=== PATIENT | male | born 1975 | race Caucasian/White ===

== ENCOUNTER 2020-05-07 16:16 | Outpatient (CLI) | payer OTHER, SELFPAY | END 2020-05-07 16:17 | disposition home or self-care (01) | LOC: ANHCOVIDVC 16:16 | PROVIDERS: PCP Internal Medicine; Visit Provider Internal Medicine | DX: Z23 Encounter for immunization (principal) | CPT/HCPCS: 0001A; 91300 ==

== ENCOUNTER 2020-05-28 16:18 | Outpatient (CLI) | payer OTHER, SELFPAY | END 2020-05-28 16:19 | disposition home or self-care (01) | LOC: ANHCOVIDVC 16:19 | PROVIDERS: PCP Internal Medicine | DX: Z23 Encounter for immunization (principal) | CPT/HCPCS: 0002A; 91300 ==

== ENCOUNTER 2021-06-06 07:55 | Outpatient (CLI) | payer OTHER, SELFPAY ==
--- NOTE | 2021-06-10 16:36 | WPDHOMESLEEP ---
Sleep Study - Home Unattended Date of Study: 06/06/21 Ordering Provider: Anni Landaverde NP Interpreting Provider: Suki Ariza, DO Home Sleep Study Type: Watch PAT Height: 1.68 m Weight: 113.398 kg Body Mass Index: 40.3 Neck Circumference (inches): 17 [place]: 2 Reason for Sleep Study Diagnosed with RYAN in past but not compliant with PAP Therapy. Sleep History The patient is a 46-year-old male with anxiety, hypertension, Vitamin D deficiency and previously diagnosed sleep apnea that had a home sleep test ordered by his primary care to restart PAP therapy. The patient denies awakening from sleep short of breath. He occasionally awakens at night with heartburn, belching or cough. He constantly snores loud enough that others complain he occasionally has trouble sleeping when he has a cold. He denies waking up gasping for air throughout the night. He occasionally has breathing problems at night observed by himself or others. He occasionally sweats excessively at night. He occasionally has heart palpitations or irregular heartbeats during the night. He denies falling asleep during the day and while driving. He denies having trouble at work due to sleepiness. He rarely feels unable to move while waking up or falling asleep. He denies experiencing loss of muscle tone when extremely emotional. He rarely has vivid dreamlike scenes upon awakening or falling asleep. He denies feeling afraid of going to sleep. He denies having nightmares. He occasionally remembers his dreams. He denies having thoughts racing through his mind. He denies feeling sad or depressed. He denies having anxiety. He denies noticing parts of his body jerk. He denies kicking during the night. He occasionally has crawling and aching feelings in his legs as well as leg pain during the night. He denies grinding his teeth during sleep but occasionally awakens with a morning jaw pain. He is really bothered by pain during the day and never awakened by pain during the night. He frequently wakes up feeling stiff in the morning. He occasionally wakes up with sore or achy muscles. He occasionally wakes up with pain in the neck, spine and other joints. He goes to bed between 10 and 11:00 p.m. on weekdays and between midnight and 2:00 a.m. on the weekends. It takes him 1 hour to fall asleep. He will wake up 1-2 times throughout the night to use the restroom and get a drink. He is able fall back asleep within 15-30 minutes. He does not have a set wake-up time on the weekdays or weekends. He typically gets 5-6 hours of sleep per night. He will stay in bed for 30 minutes after waking up in the morning. He currently lives with his and 4 children. He does not consume any caffeinated beverages within 2 hours of bedtime. He does not engage in physical exercise before bedtime. He denies reading watching television before falling asleep. He does not take naps in the afternoon or the evening. He drinks a caffeinated beverage every morning. He will drink a 6 pack of beer every week. He quit smoking 15 years ago. He denies recreational drug use. [facility] Past Medical History Medical History Acute non-recurrent maxillary sinusitis Anxiety Belching BMI 40.0-44.9, adult Elevated fasting glucose Encounter to establish care Erectile dysfunction Halitosis Hyperlipidemia Otitis externa Pre-diabetes Right knee pain Vitamin D deficiency Family History Family History Father Carcinoma of colon Diabetes mellitus Hypertension Grandparent Depression Heart disease Grandparent Cerebrovascular accident Other Family history of malignant neoplasm Social History Social History Smoking status: Current some day smoker Second hand tobacco smoke exposure: No Alcohol intake: current Medi
[2021-06-10 16:49] VITALS: BMI 40.3
== END 2021-06-09 11:42 | disposition home or self-care (01) ==
LOC: ANHCSM 07:56
PROVIDERS: PCP Nurse Practitioner Family; Visit Provider Nurse Practitioner Family
DX: G47.33 Obstructive sleep apnea (adult) (pediatric) (principal)
CPT/HCPCS: 95800

== ENCOUNTER 2021-07-24 07:33 | Outpatient (CLI) | payer OTHER, SELFPAY ==
--- NOTE | 2021-08-12 16:24 | WPDSLEEPSTUD ---
Sleep Study Date of Study: 07/24/21 Ordering Provider: Jaden Dash MD Interpreting Physician: Suki Ariza DO Sleep Study Type: CPAP Titration Height: 1.65 m Weight: 113.398 kg Body Mass Index: 41.5 Neck Circumference (inches): 17.5 [place]: 2 Reason for Sleep Study The patient had a HSAT on 06/06/2021 that showed an AHI of 35.6 with desaturation down to 77%. He had 19 central apneas. Sleep History The patient is a 46-year-old male with anxiety, hypertension, Vitamin D deficiency and previously diagnosed sleep apnea that had a home sleep test ordered by his primary care to restart PAP therapy.? The patient denies awakening from sleep short of breath.? He occasionally awakens at night with heartburn, belching or cough.? He constantly snores loud enough that others complain he occasionally has trouble sleeping when he has a cold.? He denies waking up gasping for air throughout the night.? He occasionally has breathing problems at night observed by himself or others.? He occasionally sweats excessively at night.? He occasionally has heart palpitations or irregular heartbeats during the night.? He denies falling asleep during the day and while driving.? He denies having trouble at work due to sleepiness.? He rarely feels unable to move while waking up or falling asleep.? He denies experiencing loss of muscle tone when extremely emotional.? He rarely has vivid dreamlike scenes upon awakening or falling asleep.? He denies feeling afraid of going to sleep.? He denies having nightmares.? He occasionally remembers his dreams.? He denies having thoughts racing through his mind.? He denies feeling sad or depressed.? He denies having anxiety.? He denies noticing parts of his body jerk.? He denies kicking during the night.? He occasionally has crawling and aching feelings in his legs as well as leg pain during the night.? He denies grinding his teeth during sleep but occasionally awakens with a morning jaw pain.? He is really bothered by pain during the day and never awakened by pain during the night.? He frequently wakes up feeling stiff in the morning.? He occasionally wakes up with sore or achy muscles.? He occasionally wakes up with pain in the neck, spine and other joints.? He goes to bed between 10 and 11:00 p.m. on weekdays and between midnight and 2:00 a.m. on the weekends.? It takes him 1 hour to fall asleep.? He will wake up 1-2 times throughout the night to use the restroom and get a drink.? He is able fall back asleep within 15-30 minutes.? He does not have a set wake-up time on the weekdays or weekends.? He typically gets 5-6 hours of sleep per night.? He will stay in bed for 30 minutes after waking up in the morning.? He currently lives with his and 4 children.? He does not consume any caffeinated beverages within 2 hours of bedtime.? He does not engage in physical exercise before bedtime.? He denies reading watching television before falling asleep.? He does not take naps in the afternoon or the evening.? He drinks a caffeinated beverage every morning.? He will drink a 6 pack of beer every week.? He quit smoking 15 years ago.? He denies recreational drug use. [facility] Past Medical History Medical History Acute non-recurrent maxillary sinusitis Anxiety Belching BMI 40.0-44.9, adult Elevated fasting glucose Encounter to establish care Erectile dysfunction Halitosis Hyperlipidemia Otitis externa Pre-diabetes Right knee pain Vitamin D deficiency Family History Family History Father Carcinoma of colon Diabetes mellitus Hypertension Grandparent Depression Heart disease Grandparent Cerebrovascular accident Other Family history of malignant neoplasm Social History Social History Smoking status: Current some day smoker Second hand tobacco smoke exp
[2021-08-12 17:40] VITALS: BMI 41.5
== END 2021-07-25 06:58 | disposition home or self-care (01) ==
LOC: ANHCSM 07:33
PROVIDERS: PCP Nurse Practitioner Family; Visit Provider Family Medicine
DX: G47.33 Obstructive sleep apnea (adult) (pediatric) (principal); G47.8 Other sleep disorders
CPT/HCPCS: 95811

== ENCOUNTER → 2021-09-23 15:35 | Outpatient (CLI) | payer OTHER, SELFPAY ==
--- NOTE | ~2021-09-23 | XR_ITS ---
EXAM: XR lumbar spine min 4V DATE: 09/23/2021 15:51 HISTORY: M54.50 - Low back pain, unspecified,PAIN 2 WEEKS,NO TRAUMA . COMPARISON: None available. FINDINGS: 5 nonrib-bearing lumbar-type vertebral bodies. Pedicles intact. Normal vertebral body alig nment. Vertebral body heights preserved. Multilevel mild disc space narrowing and marginal osteophyto sis, moderate at L3-4. Multilevel facet sclerosis. No pars defect. No fracture or dislocation. IMPRESSION: Multilevel degenerative disc disease and facet arthropathy. Reviewed, dictated and finalized at location K.
== END ==
PROVIDERS: PCP Nurse Practitioner Family; Visit Provider Nurse Practitioner Family
DX: M51.36 Other intervertebral disc degeneration, lumbar region (principal)
CPT/HCPCS: 72110

== ENCOUNTER 2023-05-22 10:01 | Emergency (ER) | payer OTHER, SELFPAY ==
[2023-05-22 10:14] VITALS: BP 142/101; PULSE 78; RESP 16; TEMP 37.3; O2SAT 99
--- NOTE | 2023-05-22 10:27 | ED.GENADULT ---
HPI - General Adult General Chief complaint: Extremity Problem,Nontraumatic Stated complaint: pain in left arm Time Seen by Provider: 05/22/23 10:27 Source: patient Mode of arrival: ambulatory Limitations: no limitations History of Present Illness HPI narrative: 48 y/o Male presented for complaint of left neck, shoulder and arm pain for about 4 days. He states he woke one morning with a stiff neck, and the pain to the arm has worsened since then. He endorses tingling sensation to the middle and ring fingers. Endorses resting the hand behind the head gives some relief. Denies decreased range of motion to the left arm. Has applied heat, pain cream, and taken Tylenol. Takes meloxicam. He is scheduled with his chiropractor in 2 days. Endorses heavy lifting pushing pulling for work. Denies chest pain, palpitations, shortness of breath, nausea, vomiting. Related Data Allergies Allergy/AdvReac Type Severity Reaction Status Date / Time No Known Allergies Allergy Verified 05/22/23 10:16 Review of Systems Review of Systems: CONSTITUTIONAL: Denies body aches, fever, chills, or sweats. EYES: Denies visual changes, redness, or discharge. CARDIOVASCULAR: Denies chest pain, palpitations, or edema. RESPIRATORY: Denies cough or dyspnea. SKIN: Denies rash, itching, or wounds. MUSCULOSKELETAL: Reports neck pain, left arm painDenies back pain, joint pain, or myalgia. NEUROLOGIC: Denies headache, numbness, tingling, or weakness. All systems reviewed & are unremarkable except as noted in HPI and below PMFSH Past Medical History Medical History Acute maxillary sinusitis Acute non-recurrent maxillary sinusitis Anxiety Belching Bilateral otitis externa BMI 40.0-44.9, adult Elevated fasting glucose Encounter to establish care Erectile dysfunction Halitosis Hematuria Hyperlipidemia Left otitis media Low back pain radiating to right lower extremity Morbid obesity with BMI of 45.0-49.9, adult Osteoarthritis of left knee Otitis externa Popping of left knee joint Pre-diabetes Right knee pain Sinus congestion Vitamin D deficiency Family History Family History Father Carcinoma of colon Diabetes mellitus Hypertension Grandparent Depression Heart disease Grandparent Cerebrovascular accident Other Family history of malignant neoplasm Social History Social History Smoking status: Former smoker Second hand tobacco smoke exposure: No Alcohol intake: current Drinks per week: 1 Substance use: never Substance use type: does not use Lack of Transportation: No Lack of Food: Never True Current Housing: I Have Housing Concerned About Future Housing: No Difficulty Paying Gas/Electric Bills: No Difficulty Paying for Meds: No Currently Unemployed: No Education: Trade/Vocational Certificate Difficulty w/ Childcare or Family Care: No Comments At time of signature, I have reviewed and agree with nursing past medical, surgical, social and family history unless otherwise noted. Please see nursing chart for further information. There is no relevant family history pertinent to the presenting complaint Exam Narrative: GENERAL: Well-appearing in no acute distress. EYES: EOMI. No redness or drainage. Conjunctivae normal. ENT: Mucous membranes pink and moist. No rhinorrhea. TMs normal bilaterally. Throat normal. Uvula midline. NECK: Slight decreased AROM due to pain with lateral movements, equal bilaterally. Supple. No cervical VPT. CHEST: No respiratory distress. Clear to auscultation. No chest wall tenderness. HEART: Regular rate and rhythm. No murmur appreciated. Normal peripheral pulses. ABDOMEN: Soft, nontender, nondistended, normal active bowel sounds. MUSCULOSKELETAL: Mild left trapezius tenderness, left anterior deltoid ten
== END 2023-05-22 10:44 | disposition home or self-care (01) ==
PROVIDERS: Emergency Provider Nurse Practitioner Family; PCP Nurse Practitioner Family
DX: M54.12 Radiculopathy, cervical region (principal); Z87.891 Personal history of nicotine dependence; E78.5 Hyperlipidemia, unspecified; E66.01 Morbid (severe) obesity due to excess calories; Z68.41 Body mass index [BMI] 40.0-44.9, adult; R73.03 Prediabetes; M17.12 Unilateral primary osteoarthritis, left knee; F41.9 Anxiety disorder, unspecified; E55.9 Vitamin D deficiency, unspecified
CPT/HCPCS: 99213; G0463

== ENCOUNTER → 2023-05-24 16:46 | Outpatient (CLI) | payer OTHER, SELFPAY ==
--- NOTE | ~2023-05-24 | XR_ITS ---
XR cervical spine 4-5V 05/24/2023 17:18 Indication: Radiculopathy Procedure: 5 views cervical spine Comparison: No prior studies for comparison. Findings: Vertebral body heights are maintained. No fracture, subluxation or dislocation. No fracture ,, subluxation or dislocation. No prevertebral soft tissue swelling. No foreign bodies. Odontoid process is normal. Impression: 1: No significant abnormality of the cervical spine. Reviewed, dictated and finalized at location L. Impression: 1: No significant abnormality of the cervical spine.
== END ==
PROVIDERS: PCP Family Medicine; Visit Provider Family Medicine
DX: M54.12 Radiculopathy, cervical region (principal)
CPT/HCPCS: 72050

== ENCOUNTER → 2024-02-18 08:48 | Outpatient (CLI) | payer OTHER, SELFPAY ==
--- NOTE | ~2024-02-18 | XR_ITS ---
XR foot RT 2V 02/18/2024 08:59 Indication: Status post fall 3 weeks ago. Right foot pain. Procedure: 2 views right foot Comparison: 08/07/2015 Findings: No fracture, subluxation or dislocation. Lisfranc joint intact. Small degenerative calcanea l enthesophyte. No focal soft tissue abnormality. No foreign bodies. Impression: 1: No acute bone or joint abnormality Reviewed, dictated and finalized at location B. 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
== END ==
LOC: EXPCRAD 08:50
PROVIDERS: PCP Nurse Practitioner Family; Visit Provider Nurse Practitioner Family
DX: M79.671 Pain in right foot (principal)
CPT/HCPCS: 73620